=== PATIENT | male | born 1985 | race Caucasian/White ===

== ENCOUNTER 2018-11-08 17:25 | Outpatient (CLI) | payer OTHER ==
--- NOTE | 2018-11-08 18:52 | XRAY Report ---
Reason: KNEE JOINT PAIN,RIGHT Procedure Date: 11/08/2018 Accession Number: [id number] / [id number] Procedure: XR - Knee 3 View RT CPT Code: FULL RESULT: EXAM: RIGHT KNEE RADIOGRAPHY EXAM DATE: 11/08/2018 05:44 PM. CLINICAL HISTORY: KNEE JOINT PAIN,RIGHT. COMPARISON: None. TECHNIQUE: 3 views. FINDINGS: Bones: No acute fractures or suspicious bone lesions. Joints: No effusion. No subluxations. Joint spaces are preserved. Soft Tissues: Unremarkable. IMPRESSION: No acute radiographic abnormalities. [facility]
== END 2018-11-08 17:26 | disposition home or self-care (01) ==
LOC: DI 17:25
PROVIDERS: ATTEND Physician Assistant Medical
DX: M25.561 Pain in right knee (principal)

== ENCOUNTER 2021-05-26 08:00 | Outpatient (CLI) | payer OTHER ==
[2021-05-26 21:50] LABS: CHLAMYDIA TRACHOMATIS DNA NEGATIVE (NEGATIVE); NEISSERIA GONORRHOEAE DNA NEGATIVE (NEGATIVE)
== END 2021-05-26 23:59 | disposition home or self-care (01) ==
LOC: LAB.N 08:00
PROVIDERS: ATTEND Registered Nurse
DX: R39.9 Unspecified symptoms and signs involving the genitourinary system (principal); R31.0 Gross hematuria
CPT/HCPCS: 87077; 87086; 87181; 87491; 87591; 87661

== ENCOUNTER 2022-06-07 19:05 | Outpatient (CLI) | payer OTHER ==
[2022-06-07 23:40] LABS: CHLAMYDIA TRACHOMATIS DNA NEGATIVE (NEGATIVE); NEISSERIA GONORRHOEAE DNA NEGATIVE (NEGATIVE)
== END 2022-06-07 23:59 | disposition home or self-care (01) ==
LOC: LAB.N 19:05
PROVIDERS: ATTEND Registered Nurse
DX: Z20.2 Contact with and (suspected) exposure to infections with a predominantly sexual mode of transmission (principal)
CPT/HCPCS: 87491; 87591; 87661

== ENCOUNTER 2022-06-08 11:57 | Outpatient (CLI) | payer OTHER ==
[2022-06-10 05:10] LABS: HIV SCREEN 4TH GENERATION Non Reactive (Non Reactive)
[2022-06-10 06:09] LABS: HCV AB <0.1 s/co ratio (0.0-0.9)
[2022-06-11 07:15] LABS: RPR Non Reactive (Non Reactive)
== END 2022-06-08 11:58 | disposition home or self-care (01) ==
LOC: LAB.N 11:57
PROVIDERS: ATTEND Registered Nurse
DX: Z20.2 Contact with and (suspected) exposure to infections with a predominantly sexual mode of transmission (principal)
CPT/HCPCS: 36415; 86592; 86803; 87389